=== PATIENT | female | born 1985 | race Caucasian/White ===

== ENCOUNTER 2017-06-27 08:53 | Emergency (ER) | payer OTHER, SELFPAY ==
[~2017-06-27] VITALS: Ht 162.6 cm; Wt 77.1 kg
[~2017-06-27 08:53] MED LIST: BACTRIM DS TAB1 EACH PO; BENTYL20 MG PO; HYDROCODONE-AP1 EAC6 PO; PERCOCET 5-3251 EACH PO; ZENCHENT1 EACH; ZOFRAN ODT4 MG PO; ZOFRAN4 MG PO; ZPAK PO
[2017-06-27] MEDS ORDERED: PRENATAL PO (09:33)
[2017-06-27] MEDS ORDERED: ZYRTEC10 M5 PO (09:34)
[2017-06-27 10:35] LABS: URINE BILIRUBIN NEGATIVE (Negative); URINE BLOOD NEGATIVE (Negative); URINE CLARITY CLEAR; URINE COLOR YELLOW; URINE GLUCOSE-RANDOM NEGATIVE (Negative); URINE KETONES NEGATIVE (Negative); URINE LEUKOCYTES-REFLEX NEGATIVE (Negative); URINE NITRITE-REFLEX NEGATIVE (Negative); URINE PROTEIN TRACE (Negative); URINE SPECIFIC GRAVITY 1.015 (1.005-1.030); URINE UROBILINOGEN 0.2 E.U./dl (0.2-1.0)
[2017-06-27 10:46] LABS: HEMATOCRIT 43.5 % (37.0-47.0); HEMOGLOBIN 14.1 gm/dL (12.0-15.0); MCH 27.4 pg (26.0-34.0); MCHC 32.5 g/dL (28.0-37.0); MCV 84.4 fL (80.0-100.0); MPV 7.7 fl. (7.2-11.1); NUCLEATED RBCS 0 /100WBC; PLATELET COUNT* 288 thou/uL (150-400); RBC 5.15 mil/uL (4.20-5.00); RDW-CV 14.2 % (10.5-14.5); WBC 11.9 thou/uL (4.0-11.0)
[2017-06-27 10:53] LABS: CALCIUM 8.8 mg/dL (8.5-10.1); POTASSIUM 3.5 mmol/L (3.5-5.1)
[2017-06-27 10:58] LABS: ALBUMIN 4.3 g/dL (3.4-5.0); TOTAL BILIRUBIN 0.5 mg/dL (<0.1-1.0); TOTAL PROTEIN 8.3 g/dL (6.4-8.2)
[2017-06-27 11:05] LABS: ABSOLUTE EOSINOPHILS 0.1 thou/uL (0.0-0.7); ABSOLUTE LYMPHOCYTES 0.5 thou/uL (0.8-5.3); ABSOLUTE MONOCYTES 0.1 thou/uL (0.0-1.2); ABSOLUTE NEUTROPHILS 11.2 thou/uL (1.6-8.1); ANISOCYTOSIS 1+; PLATELET ESTIMATE ADEQUATE; POIKILOCYTOSIS 1+
[2017-06-27] MEDS ORDERED: ZOFRAN ODT4 MG PO (11:56)
[2017-06-27 12:20] VITALS: BP 103/66
== END 2017-06-27 12:21 | disposition home or self-care (01) ==
LOC: M.ERS 08:53
PROVIDERS: Nurse Practitioner Psychiatric/Mental Health
DX: R11.2 Nausea with vomiting, unspecified (principal); R10.31 Right lower quadrant pain